=== PATIENT | male | born 1995 | race Caucasian/White ===

== ENCOUNTER 2025-05-31 12:19 | Emergency (ER) | payer OTHER, SELFPAY ==
[2025-05-31 12:36] VITALS: BP 144/87; PULSE 45; RESP 16; TEMP 36.4; O2SAT 100; BMI 27.7
--- NOTE | 2025-05-31 13:05 | ED_ITS ---
HPI - Wound/Laceration General Chief Complaint: Wound/Laceration Stated Complaint: Laceration on Head Time Seen by Provider: 05/31/25 13:05 Source: patient Mode of arrival: Ambulatory History of Present Illness HPI narrative: Mr. Benitez is a pleasant 21-year-old male, active [employer], up-to-date on his Tdap, who presents to the emergency department for a right frontal scalp laceration that occurred prior to arrival. Patient was attempting to pull a nail out of the wall using pliers when the pliers came backward and the handle hit the right side of his scalp. He now has a 2 cm linear bleeding laceration on his right frontal scalp. Bleeding is controlled with direct pressure. He denies any loss of consciousness, headache, nausea, vomiting, visual disturbance. He feels normal except for the pain related to the laceration. No blood thinner use. He is here with his . Related Data Allergies Allergy/AdvReac Type Severity Reaction Status Date / Time No Known Drug Allergies Allergy Verified 05/31/25 12:35 Review of Systems Review of Systems ROS Unobtainable: All systems reviewed & are unremarkable except as noted in HPI and below Patient History Smoking Status: Never smoker Exam Narrative Exam Narrative: GENERAL: 29 year old patient appears stated age. Well-developed patient, in no acute distress. HEAD: 2 cm linear laceration on the right frontal scalp. Bleeding controlled with direct pressure. EYES: Extraocular motions intact. No scleral icterus. No injection or drainage. ENT: Nose without bleeding, purulent drainage. NECK: Trachea midline. Cervical ROM intact. CARDIOVASCULAR: Bradycardia at rest RESPIRATORY: ?Nonlabored respirations. ?Speaking in clear, full sentences. EXTREMITIES: No edema or joint tenderness. NEURO: AOx3. ?Clear speech. ?Moves all 4 extremities appropriately. SKIN: Warm, dry. Right frontal scalp laceration. No rashes. Initial Vital Signs Initial Vital Signs: Vital Signs Temperature 97.6 F 05/31/25 12:36 Pulse Rate 45 L 05/31/25 12:36 Respiratory Rate 16 05/31/25 12:36 Blood Pressure 144/87 H 05/31/25 12:36 Pulse Oximetry 100 05/31/25 12:36 Oxygen Delivery Method Room Air 05/31/25 12:36 Procedures Laceration Repair Laceration 1: Time of procedure: 13:32 Site: scalp Side (If applicable): right Size (cm): 2 Description: linear Depth: simple, single layer Local Anesthetic: lidocaine 1% and with epi Amount of anesthesia used (mL): 2 Pre-repair: wound explored, irrigated extensively and cleansed with chlorhexadine Skin layer closed with: allyssa (2) Course Orders Ordered: Discontinued Medications Bacitracin (Bacitracin Oint 0.9 Gm Pckt) 1 applic TOP NOW ONE Stop: 05/31/25 13:27 Last Admin: 05/31/25 13:30 Dose: 1 applic Lidocaine/Epinephrine (Lidocaine 1% W/Epi 10ml) 5 ml SUBCUT NOW ONE Stop: 05/31/25 13:07 Last Admin: 05/31/25 13:20 Dose: 5 ml Vital Signs Vital signs: Vital Signs - 8 hr 05/31/25 12:36 Temperature 97.6 F Pulse Rate 45 L Respiratory Rate 16 Blood Pressure 144/87 H Pulse Oximetry 100 Oxygen Delivery Method Room Air MDM - Wound/Laceration Medical Records Medical records narrative: None available for review. Patient did call and speak with his flight surgeon to confirm Tdap is up-to-date. MDM Narrative Medical decision making narrative: 21-year-old male, active [employer], up-to-date on his Tdap, who presents to the emergency department for a right frontal scalp laceration that occurred prior to arrival. Differential diagnosis includes but is not limited to closed head injury, scalp laceration, concussion, etc. On exam patient is in no acute distress, nontoxic appearing, vital signs appropriate for patient. He has a 2 cm linear right frontal scalp laceration. Bleeding is controlled with direct pressure. Tdap is up-to-date. He is having no headache or concussion-like symptoms. The wound was cleansed, irrigated, anesthetized and repaired using 2 allyssa. Patient tolerated procedure extremely well. Discussed proper wound care, staple removal in 7-10 days, signs symptoms of infection and reasons to follow up sooner. Patient & his verbalized understanding of all information & are agreeable with the plan. He is stable for discharge home. Discharge Plan Departure Patient Disposition: Home Clinical Impression: Laceration of scalp Qualifiers: Encounter type: initial encounter Qualified Code(s): S01.01XA - Laceration without foreign body of scalp, initial encounter Instructions: DI for Laceration Repair -- Allyssa Activity Restrictions/Additional Instructions: Dear Mr. Benitez, Thank you for coming to the emergency department. I am very sorry that you sustained a laceration to your scalp today. We have placed 2 allyssa. They need to be removed in 7-10 days. You may do this in your doctor's office, the [id number], or here if necessary. Please keep the dressing on your wound clean, dry, and intact for the next 24 hours. After this time, you may remove the dressing and gently clean the wound with soap and water, then pat dry. Keep the wound clean and covered with ointment. Avoid soaking the wound in any water such as a bath, pool, or the ocean. If you develop any signs of wound infection such as increased redness, pus drainage, streaking redness, or fevers, please return to the ER immediately for evaluation. If the wound starts bleeding again, please apply firm direct pressure for at least 15 minutes. Be careful brushing your hair as to not rip out the allyssa. Make sure all shampoo was rinsed out of your hair at the end of showers. Please take I buprofen (Motrin/Advil) or Acetaminophen (Tylenol) for pain. These are available over the counter. You may take Ibuprofen 600 mg every 8 hours with food for pain. You may also take Acetaminophen 650 mg every 4-6 hours for pain. Do not exceed 3000 mg of Tylenol a day as this can cause liver damage. Do not drink alcohol with either of these medications. Please follow up with your primary care doctor within the next 2-3 days for ER follow-up. (If you do not have a PCP you can call [phone]. ?to schedule an appointment with an [facility] Primary Care Provider) IF YOU DEVELOP ANY NEW OR WORSENING SYMPTOMS, RETURN TO THE ER! Please read the attached instructions, they highlight more specific treatments and interventions for you at home. Thank you for letting me participate in your care, Sonia Mckeon PA-C Stand Alone Forms: Patient Portal/API
[2025-05-31] MEDS: LIDOCAINE 1% W/EPI 10ML 5 ML SUBCUT (13:20)
[2025-05-31] MEDS: BACITRACIN OINT 0.9 GM PCKT 1 APPLIC TOP (13:30)
== END 2025-05-31 13:38 | disposition home or self-care (01) ==
PROVIDERS: Emergency Provider Physician Assistant
DX: S01.01XA Laceration without foreign body of scalp, initial encounter (principal); W20.8XXA Other cause of strike by thrown, projected or falling object, initial encounter
CPT/HCPCS: 12001; 99282; 99283